=== PATIENT | male | born 1975 | race Caucasian/White ===

== ENCOUNTER → 2024-09-26 13:43 | Outpatient (BNVA) | payer OTHER, SELFPAY | PROVIDERS: Family Provider Family Medicine; PCP Family Medicine; Visit Provider Nurse Practitioner Family | DX: M25.571 Pain in right ankle and joints of right foot (principal); M79.671 Pain in right foot | CPT/HCPCS: 73610; 73630 ==

== ENCOUNTER → 2024-10-19 11:22 | Outpatient (BNVA) | payer OTHER, SELFPAY | PROVIDERS: Family Provider Family Medicine; PCP Family Medicine; Visit Provider Podiatrist Foot & Ankle Surgery | DX: M79.671 Pain in right foot (principal); M25.571 Pain in right ankle and joints of right foot; S93.401A Sprain of unspecified ligament of right ankle, initial encounter; X58.XXXA Exposure to other specified factors, initial encounter; M76.821 Posterior tibial tendinitis, right leg | CPT/HCPCS: 73610; 73630 ==

== ENCOUNTER 2024-12-12 14:50 | Outpatient (CLI) | payer OTHER, SELFPAY | END 2024-12-12 14:51 | disposition home or self-care (01) | LOC: SPT 14:50 | PROVIDERS: Family Provider Family Medicine; PCP Family Medicine; Visit Provider Podiatrist Foot & Ankle Surgery | DX: Z46.89 Encounter for fitting and adjustment of other specified devices (principal); M76.821 Posterior tibial tendinitis, right leg | CPT/HCPCS: L1902 ==

== ENCOUNTER 2025-02-06 08:59 | Outpatient (CLI) | payer OTHER, SELFPAY ==
--- NOTE | 2025-02-06 09:30 | MR_ITS ---
WS: [id number] MRI RIGHT ANKLE WITHOUT CONTRAST. COMPARISON: Radiograph 10/19/2024 Multiplanar, multisequence imaging is performed without contrast. There is marrow edema within the bones of the ankle and midfoot. Marrow edema along the tibial plafond and extending into the medial and lateral malleolus. There is extensive marrow edema within the talus and scattered within the calcaneus. Variable signal with edema in the bones of the midfoot. There is marrow edema in the proximal metatarsals. Normal Achilles tendon. No tear of the plantar aponeurosis. There is fluid but no widening in the distal interosseous space. There is probable interosseous ligament injury due to the amount of fluid. Partial tear anterior inferior tibiofibular ligament. Posterior tibiofibular ligament is intact. Increased signal with thickening of the anterior talofibular ligament. No full- thickness tear. Posterior talofibular ligament is normal. Striations throughout the deltoid ligament. There is a partial tear at the insertion to the medial talus. There is fluid adjacent to the calcaneofibular ligament. Tear would be unlikely as the peroneal tendons appear to be intact. Flexor hallucis longus and flexor digitorum longus are normal. Anterior tibialis tendon and the extensor tendons are normal. Narrowing of the tibiotalar joint space. Loss of cartilage greatest along the anterior lateral tibial plafond. There is small osteochondral defects in the talus and tibia. Large amount of soft tissue edema surrounding the ankle and midfoot. MR/MR foot RT wo con* [id number] IMPRESSION: 1. There is scattered marrow edema in the distal tibia and fibula. Marrow eli a within portions of the calcaneus and the talus. 2. Extensive marrow edema involving the tarsal bones and the proximal metatars als. Fractures would be difficult to exclude. There may be a component of insta bility related to recent trauma resulting in the extensive marrow edema. 3. Extensive soft tissue edema in the midfoot. 4. High ankle sprain. 5. Partial tear of the anterior inferior tibiofibular ligament. 6. High-grade sprain anterior talofibular ligament but no tear identified. 7. Partial tear of the deltoid ligament at the insertion to the medial talus. 8. Fluid along the calcaneofibular ligament. The overlying peroneal tendons ar e intact. Calcaneofibular ligament tear would be unusual with intact peroneal t endons. 9. Narrowing of the tibiotalar joint with loss of cartilage. 10. Osteochondral defects in the talus and tibia. Consider CT RIGHT foot for improved bone detail and assessment for fractures.
== END 2025-02-06 09:00 | disposition home or self-care (01) ==
LOC: RAD 09:00
PROVIDERS: PCP Family Medicine; Visit Provider Podiatrist Foot & Ankle Surgery
DX: G57.61 Lesion of plantar nerve, right lower limb (principal)
CPT/HCPCS: 73718

== ENCOUNTER 2025-02-21 10:15 | Outpatient (CLI) | payer OTHER, SELFPAY | END 2025-02-21 10:16 | disposition home or self-care (01) | LOC: SPT 10:16 | PROVIDERS: PCP Family Medicine; Visit Provider Podiatrist Foot & Ankle Surgery | DX: Z46.89 Encounter for fitting and adjustment of other specified devices (principal); M25.571 Pain in right ankle and joints of right foot | CPT/HCPCS: L4361 ==

== ENCOUNTER 2025-05-29 15:05 | Outpatient (RCR) | payer OTHER, SELFPAY | END 2025-05-30 23:59 | disposition home or self-care (01) | LOC: GPT 15:05 | PROVIDERS: Visit Provider Podiatrist Foot & Ankle Surgery | DX: M25.571 Pain in right ankle and joints of right foot (principal); M25.371 Other instability, right ankle; R26.2 Difficulty in walking, not elsewhere classified | CPT/HCPCS: 97110; 97112; 97140; 97161 ==